=== PATIENT | female | born 1960 ===

== ENCOUNTER → 2024-09-03 07:02 | Outpatient (CLI) | payer OTHER ==
[2024-09-03 08:11] LABS: EOS # 0.18 (0.04-0.54); EOS % 3.8 % (0.7-7.0); HEMATOCRIT 33.5 % (34.1-44.9); HEMOGLOBIN 11.6 g/dL (11.2-15.7); LYMPH # 1.71 (1.18-3.74); LYMPH % 35.8 % (19.3-53.1); MEAN CORPUSCULAR HEMOGLOBIN 27.4 pg (25.6-32.2); MONO # 0.36 (0.24-0.82); MONO % 7.5 % (4.7-12.5); NEUT # 2.47 (1.56-6.13); NEUT % 51.7 % (34.0-71.1); PLATELET COUNT 273 K/uL (163-369); RED BLOOD COUNT 4.23 M/uL (3.93-5.22); RED CELL DISTRIBUTION WIDTH 11.9 % (11.6-14.4)
[2024-09-03 08:20] LABS: PH,URINE 6.5 (5.0-8.0); URINE APPEARANCE Clear; URINE BILIRRUBIN Negative (NEGATIVE); URINE BLOOD Negative; URINE COLOR Yellow; URINE GLUCOSE Negative (NEGATIVE); URINE KETONE Trace (NEGATIVE); URINE LEUKOCYTE Small; URINE NITRATE Negative; URINE PROTEIN Negative (NEGATIVE); URINE UROBILINOGEN 0.2 E.U./dl
[2024-09-03 08:24] LABS: URINE BACTERIA 122.3 uL (0.0-1933); URINE EPITHELIAL CELLS 20.2 uL (0.0-38.8); URINE RBC 4.7 uL (0.0-20.8); URINE WBC 14.8 uL (0.0-23.2)
[2024-09-03 08:28] LABS: INR 0.95; PARTIAL THROMBOPLASTIN TIME 27.1 SECONDS (22.0-34.0); PROTHROMBIN TIME 10.4 SECONDS (9.0-11.5)
[2024-09-03 08:51] LABS: COL EPI 172 SECONDS (82-175)
[2024-09-03 09:14] LABS: URINE CAST 0.29 uL (0.0-1.40)
[2024-09-03 09:18] LABS: ALBUMIN 4.3 gm/dL (3.4-5.0); BILIRUBIN TOTAL 0.49 mg/dL (0.3-1.2); CALCIUM 10.4 mg/dL (8.5-10.1); CREATININE SERUM 0.64 mg/dL (0.55-1.02); GFR 93.72; GLOBULINA 2.9 G/DL (2.4-3.5); POTASSIUM 3.3 mEq/L (3.5-5.1); TOTAL PROTEIN 7.2 gm/dL (6.4-8.2)
== END | disposition home or self-care (01) ==
LOC: LAB 07:02
PROVIDERS: ATTEND Orthopaedic Surgery
DX: D64.9 Anemia, unspecified (principal); E88.89 Other specified metabolic disorders; D68.8 Other specified coagulation defects; N39.0 Urinary tract infection, site not specified; Z22.322 Carrier or suspected carrier of Methicillin resistant Staphylococcus aureus; E11.9 Type 2 diabetes mellitus without complications

== ENCOUNTER 2024-09-03 07:39 | Outpatient (CLI) | payer OTHER | END 2024-09-03 07:45 | disposition home or self-care (01) | LOC: RAD 07:39 | PROVIDERS: ATTEND Orthopaedic Surgery | DX: Z76.89 Persons encountering health services in other specified circumstances (principal) ==